=== PATIENT | female | born 1995 | race Caucasian/White ===

== ENCOUNTER 2023-12-28 03:24 | Emergency (ER) | payer SELFPAY ==
[2023-12-28 04:00] VITALS: BP 123/64; PULSE 91; RESP 16; TEMP 36.6; O2SAT 96; BMI 34.9
--- NOTE | 2023-12-28 04:03 | PC.NURSE ---
vibrator stuck in vagina
--- NOTE | 2023-12-28 04:17 | ED.SKABFB ---
HPI - Skin/Abscess/Foreign Bdy General Chief complaint: Skin/Abscess/Foreign Body Stated complaint: vibrator stuck in vagina Time Seen by Provider: 12/28/23 04:07 Source: patient Mode of arrival: Ambulatory Limitations: no limitations History of Present Illness HPI narrative: Patient is a healthy 28-year-old female who presents today with vibrator in vagina. She reports that this was consensual intercourse and vibrator got lost. He was tried for over an hour to get it out and unsuccessful. She is here alone. Related Data Allergies Allergy/AdvReac Type Severity Reaction Status Date / Time No Known Drug Allergies Allergy Verified 12/28/23 03:59 Patient History Social History Smoking Status: Never smoker Smoking Status: Never smoker alcohol intake frequency: a few times a week Substance Use Type: marijuana Exam Initial Vital Signs Initial Vital Signs: Vital Signs Temperature 97.8 F 12/28/23 04:00 Pulse Rate 91 H 12/28/23 04:00 Respiratory Rate 16 12/28/23 04:00 Blood Pressure 123/64 12/28/23 04:00 Pulse Oximetry 96 12/28/23 04:00 Oxygen Delivery Method Room Air 12/28/23 04:00 GENERAL: Well-appearing, well-nourished and in no acute distress. CARDIOVASCULAR: peripheral pulses in tact, cap refill <2 sec RESPIRATORY: No respiratory distress, speaks in full sentences without difficulty PELVIC: External genitalia is normal, foreign body identified and removed with Velma forceps, no vaginal bleeding EXTREMITIES: Normal range of motion, no clubbing or edema. Neurovascularly intact NEUROLOGICAL: Cranial nerves II through XII grossly intact. Normal gait and speech. SKIN: Warm, dry, no petechiae, no rashes or lesions. Course Vital Signs Vital signs: Vital Signs - 8 hr 12/28/23 04:00 Temperature 97.8 F Pulse Rate 91 H Respiratory Rate 16 Blood Pressure 123/64 Pulse Oximetry 96 Oxygen Delivery Method Room Air MDM - Skin/Abscess/Foreign Bdy MDM Narrative Medical decision making narrative: Patient is a healthy 28-year-old female who presents today with a foreign body in vagina. Was easily removed no trauma to the area. Patient instantly relieved. Discharge Plan Departure Patient Disposition: Home Clinical Impression: Acute foreign body of vagina Activity Restrictions/Additional Instructions: *You have been diagnosed with foreign body in your vagina *What to do: You maybe sore and experienced a little bit of bleeding it should resolve *Continue to take medications as directed *Follow up with your primary care provider in 2-3 days or call [phone] *Return to ER if you should have any new, worsening or concerning symptoms Stand Alone Forms: Patient Portal/API
== END 2023-12-28 04:22 | disposition home or self-care (01) ==
PROVIDERS: Emergency Provider Emergency Medicine
DX: T19.2XXA Foreign body in vulva and vagina, initial encounter (principal); W44.G9XA Other non-organic objects entering into or through a natural orifice, initial encounter
CPT/HCPCS: 99281; 99282

== ENCOUNTER 2024-01-22 17:02 | Emergency (ER) | payer OTHER, MEDICAID, SELFPAY ==
[2024-01-22 17:53] VITALS: BP 122/90; PULSE 85; RESP 16; TEMP 37.2; O2SAT 95; BMI 34.9
[2024-01-22 19:16] LABS: Add Manual Diff / Slide Review NO; Basophils Absolute Auto 0 /uL (0-100); Basophils Percent Auto 0.2 % (0-2); Eosinophils Absolute Auto 100 /uL (0-450); Eosinophils Percent Auto 1.9 % (2-4); Hemoglobin 14.1 g/dL (12.0-16.0); Lymphocytes Absolute Auto 1800 /uL (1100-4500); Lymphocytes Percent Auto 24.9 % (25-40); Mean Corpuscular HGB Conc 34.4 % (30-36); Mean Corpuscular Hemoglobin 29.9 PG (26-34); Mean Corpuscular Volume 87.1 fL (80-100); Monocytes Absolute Auto 500 /uL (0-900); Monocytes Percent Auto 7.4 % (3-14); Neutrophils Absolute Auto 4700 /uL (1500-7000); Neutrophils Percent Auto 65.6 % (50-75); Platelet Count 199 X10^3/uL (150-400); Red Blood Cell Count 4.71 X10^6/uL (4.0-5.2); Red Cell Distribution Width 13.4 % (11.6-14.8); White Blood Cell Count 7.2 X10^3/uL (4.5-11.0)
[2024-01-22 20:08] LABS: Alanine Aminotransferase 16 IU/L (<35); Albumin 3.9 g/dL (3.5-5.0); Albumin Globulin Ratio 1.1 (1.0-2.8); Alkaline Phosphatase 90 U/L (38-126); Aspartate Aminotransferase 26 IU/L (14-36); BUN Creatinine Ratio 10.9 (6-22); Bilirubin Total 0.6 mg/dL (0.2-1.3); Blood Urea Nitrogen 7 mg/dL (7-17); Calcium 8.9 mg/dL (8.4-10.2); Carbon Dioxide 24 mmol/L (22-32); Chloride 103 mmol/L (98-107); Estimated Glomerular Filt Rate > 60 mL/min (>60); Globulin 3.6 g/dL (1.7-4.1); Glucose 93 mg/dL (70-100); HEMOLYSIS 19 (0-50); Lipase 30 U/L (23-300); Sodium 134 mmol/L (137-145); Total Protein 7.5 g/dL (6.3-8.2)
[2024-01-22 20:22] LABS: Urine Volume 10mL (spun)
[2024-01-22 20:23] LABS: Bacteria Urine Many (>30); Culture Indicated Urine Specimen Cultured; Mucus Urine 1+ (Negative); RBC Urine 0-1/HPF (0-5/HPF); Squamous Epithelial Cell Urine 0-1 /HPF (0-5/HPF); WBC Urine 10-30/HPF (0-5/HPF)
[2024-01-22 20:46] VITALS: PULSE 91; O2SAT 91
[2024-01-22 20:47] VITALS: BP 128/87; PULSE 87; O2SAT 97
[2024-01-22 21:00] VITALS: BP 118/58; PULSE 86; O2SAT 95
--- NOTE | 2024-01-22 21:18 | ED_ITS ---
HPI - General Adult General Chief complaint: Abdominal Pain Stated complaint: gastric symptoms tampon stuck for 7 days Time Seen by Provider: 01/22/24 21:12 Source: patient Mode of arrival: Ambulatory History of Present Illness HPI narrative: Patient is a 28-year-old female who states that yesterday she removed a tampon that was mistakenly left hand for 7 days. She states that she also has symptoms that are consistent with a urinary tract infection to include urinary frequency and urgency. Has some very mild generalized abdominal tenderness. No vomiting. No fevers. No change in bowel habits. Not having any vaginal discharge. Related Data Previous Rx's Medication Instructions Recorded cephalexin 500 mg capsule 500 mg PO BID 7 days #14 caps 01/22/24 ondansetron 4 mg disintegrating 4 mg PO Q6H PRN nausea and 01/22/24 tablet vomiting #10 tabs Allergies Allergy/AdvReac Type Severity Reaction Status Date / Time No Known Drug Allergies Allergy Verified 12/28/23 03:59 Review of Systems Review of Systems Narrative: See HPI Patient History Social History Smoking Status: Never smoker Smoking Status: Never smoker alcohol intake frequency: a few times a week Substance Use Type: marijuana Exam Initial Vital Signs Initial Vital Signs: Vital Signs Temperature 99.0 F 01/22/24 17:53 Pulse Rate 85 01/22/24 17:53 Respiratory Rate 16 01/22/24 17:53 Blood Pressure 122/90 01/22/24 17:53 Pulse Oximetry 95 01/22/24 17:53 Oxygen Delivery Method Room Air 01/22/24 17:53 Const General: cooperative, comfortable and No ill appearing Resp Effort & Inspection: normal respiratory effort Cardio Rate: regular rate GI Inspection: normal to inspection Skin General: no rashes or lesions noted Course Orders Ordered: ED Orders 01/22/24 18:05 Complete Blood Count AUTO DIFF Stat Comprehensive Metabolic Panel Stat Lipase Stat 01/22/24 19:45 Urine Culture Stat Urine Microscopic Stat Discontinued Medications Cephalexin HCl (Cephalexin 250 Mg Capsule) 500 mg PO NOW ONE Stop: 01/22/24 21:20 Last Admin: 01/22/24 21:27 Dose: 500 mg Documented By: RUPERT Ondansetron HCl (Ondansetron 4 Mg/2 Ml Inj) 4 mg IV NOW PRN PRN Reason: Nausea And Vomiting Ondansetron HCl (Ondansetron 4 Mg Odt) 4 mg PO NOW PRN PRN Reason: Nausea And Vomiting Ondansetron HCl (Ondansetron 4 Mg Odt Prepack) 1 bottle MISC DIRECTED ONE Stop: 01/22/24 21:20 Last Admin: 01/22/24 21:27 Dose: 1 bottle Documented By: RUPERT Vital Signs Vital signs: Vital Signs - 8 hr 01/22/24 20:46 01/22/24 20:47 01/22/24 20:47 Pulse Rate 91 H 87 Blood Pressure 128/87 Pulse Oximetry 91 97 01/22/24 21:00 01/22/24 21:00 01/22/24 21:30 Pulse Rate 86 91 H Blood Pressure 118/58 L Pulse Oximetry 95 95 01/22/24 21:30 Pulse Rate Blood Pressure 111/78 Pulse Oximetry Medical Decision Making Lab Data 01/22/24 18:05 01/22/24 18:05 Labs: Lab Results 01/22/24 01/22/24 Range/Units 18:05 19:45 WBC 7.2 (4.5-11.0) X10^3/uL RBC 4.71 (4.0-5.2) X10^6/uL Hgb 14.1 (12.0-16.0) g/dL Hct 41.0 (36-46) % MCV 87.1 (80-100) fL MCH 29.9 (26-34) PG MCHC 34.4 (30-36) % RDW 13.4 (11.6-14.8) % Plt Count 199 (150-400) X10^3/uL Neut % (Auto) 65.6 (50-75) % Lymph % (Auto) 24.9 L (25-40) % [place] % (Auto) 7.4 (3-14) % Eos % (Auto) 1.9 L (2-4) % Baso % (Auto) 0.2 (0-2) % Neut # (Auto) 4700 (8528-1428) /uL Lymph # (Auto) 1800 (9527-2744) /uL [place] # (Auto) 500 (0-900) /uL Eos # (Auto) 100 (0-450) /uL Baso # (Auto) 0 (0-100) /uL Sodium 134 L (137-145) mmol/L Potassium 4.0 (3.4-5.1) mmol/L Chloride 103 (98-107) mmol/L Carbon Dioxide 24 (22-32) mmol/L BUN 7 (7-17) mg/dL Creatinine 0.64 (0.52-1.04) mg/dL Estimated GFR > 60 (>60) mL/min BUN/Creatinine Ratio 10.9 (6-22) Glucose 93 (70-100) mg/dL Calcium 8.9 (8.4-10.2) mg/dL Total Bilirubin 0.6 (0.2-1.3) mg/dL AST 26 (14-36) IU/L ALT 16 (<35) IU/L Alkaline Phosphatase 90 (38-126) U/L Total Protein 7.5 (6.3-8.2) g/dL Albumin 3.9 (3.5-5.0) g/dL Globulin 3.6 (1.7-4.1) g/dL Albumin/Globulin Ratio 1.1 (1.0-2.8) Lipase 30 (23-300) U/L Urine RBC 0-1/hpf (0-5/HPF) Urine WBC 10-30/hpf H (0-5/HPF) Ur Squamous Epith Cells 0-1 /hpf (0-5/HPF) Urine Bacteria Many (>30) H (None) Urine Mucus 1+ H (Negative) Ur Culture Indicated? Specimen cultured Vol Urine Centrifuged 10ml (spun) Point of Care Testing Test Results Negative Urine Dip Bedside Urine Glucose Negative Bedside Urine Bilirubin - Negative Bedside Urine Ketone - Negative Urine Specific [place] 1.025 Bedside Urine Occult Blood +++ Bedside Urine pH 5.5 Bedside Urine Protein - Negative Bedside Urine Urobilinogen - Negative Bedside Urine Nitrite - Negative Bedside Urine Leukocytes + 70 Esterase Point of care testing: Point of Care Testing Test Results Negative Urine Dip Bedside Urine Glucose Negative Bedside Urine Bilirubin - Negative Bedside Urine Ketone - Negative Urine Specific [place] 1.025 Bedside Urine Occult Blood +++ Bedside Urine pH 5.5 Bedside Urine Protein - Negative Bedside Urine Urobilinogen - Negative Bedside Urine Nitrite - Negative Bedside Urine Leukocytes + 70 Esterase MDM Narrative Medical decision making narrative: History and physical exam and labs are consistent with a urinary tract infection. Will treat with antibiotics. First dose given here in the emergency department a prescription was sent to the pharmacy of her choice. She was not have any physical exam or history labs that are consistent with toxic shock syndrome. Tolerating oral intake. She was given return precautions. She expressed understanding and agreement with plan. Discharge Plan Departure Patient Disposition: Home Clinical Impression: Urinary tract infection Instructions: DI for Urinary Tract Infection (UTI) Activity Restrictions/Additional Instructions: Take the antibiotics as directed. You can take Tylenol and/or ibuprofen for discomfort or fevers or body aches. Contact your primary doctor for a follow- up. Return to the emergency department for new or worsening symptoms. Prescriptions: New cephalexin 500 mg capsule 500 mg PO BID 7 Days Qty: 14 0RF ondansetron 4 mg tablet,disintegrating 4 mg PO Q6H PRN (Reason: nausea and vomiting) Qty: 10 0RF Referrals: Jazmine Adrian PA-C [Primary Care Provider] - Stand Alone Forms: Patient Portal/API/Survey
[2024-01-22] MEDS: cephALEXin 250 MG CAPSULE 500 MG PO (21:27)
[2024-01-22] MEDS: ONDANSETRON 4 MG ODT PREPACK 1 BOTTLE MISC (21:27)
[2024-01-22 21:30] VITALS: BP 111/78; PULSE 91; O2SAT 95
== END 2024-01-22 21:34 | disposition home or self-care (01) ==
PROVIDERS: Emergency Medicine; Emergency Provider Emergency Medicine; PCP Physician Assistant Medical
DX: N39.0 Urinary tract infection, site not specified (principal); J02.9 Acute pharyngitis, unspecified
CPT/HCPCS: 36415; 80053; 81003; 81015; 81025; 83690; 85025; 87077; 87086; 87186; 99283; 99284

== ENCOUNTER → 2024-08-06 11:49 | Outpatient (CLI) | payer OTHER, SELFPAY | PROVIDERS: PCP Nurse Practitioner Family; Visit Provider Chiropractor | DX: J02.9 Acute pharyngitis, unspecified (principal) | CPT/HCPCS: 87070 ==

== ENCOUNTER 2024-10-14 12:18 | Emergency (ER) | payer OTHER, SELFPAY ==
[2024-10-14 12:43] VITALS: BP 133/84; PULSE 112; RESP 20; TEMP 37; O2SAT 95; BMI 33.3
--- NOTE | 2024-10-14 13:12 | ED_ITS ---
HPI - Psych General Chief Complaint: Psychiatric Symptoms Stated Complaint: Mental health crisis/Does not trust self alone Time Seen by Provider: 10/14/24 12:55 Source: patient Mode of arrival: Ambulatory History of Present Illness HPI Narrative: Patient here for suicidal thoughts for the past couple of months. Worsening thoughts. She did call suicide hotline a few times this week. She has not done anything to hurt herself or overdose. No prior history of mental health admission to the hospitalist. She does have established psychiatrist then she has been off and on compliant with her medications. Does not have established counselor. She is voluntary and wishes help for her suicide ideations. Related Data Home Medications ?Medication ?Instructions ?Recorded ?Confirmed cholecalciferol (vitamin D3) 125 125 mcg PO .twice per week 08/17/24 08/17/24 mcg (5,000 unit) capsule mecobalamin (vitamin B12) 500 mcg mcg PO 08/17/2406/08 chewable tablet Previous Rx's ?Medication ?Instructions ?Recorded escitalopram oxalate 20 mg tablet 20 mg PO DAILY #90 t abs 02/05/24 levonorgestrel 0.15 mg-ethinyl See Rx Instructions PO .COMPLEX 02/05/24 estradiol 0.03 mg tablet #84 tabs atomoxetine 40 mg capsule 40 mg PO QAM #30 caps albuterol sulfate 90 mcg/actuation 2 puff inhalation Q 6H PRN 08/06/24 aerosol inhaler (Ventolin HFA) shortness of breath or wheezing #8.5 grams azithromycin 250 mg tablet See Rx Instructions PO .COM PLEX #6 08/06/24 tabs naltrexone 50 mg tablet 50 mg PO DAILY #30 tabs 09/14 07/09 Allergies Allergy/AdvReac Type Severity Reaction Status Date / Time No Known Drug Allergies Allergy Verified 10/14/24 12:45 Review of Systems Review of Systems Narrative: GENERAL: Negative chills, fatigue, malaise, fever, sweats. HEENT: Negative sinus pain, ear pain, sore throat RESPIRATORY: Negative dyspnea, cough CARDIOVASCULAR: Negative chest pain, palpitations GASTROINTESTINAL: Negative vomiting, nausea, abdominal pain : Negative dysuria, frequency, hematuria MUSCULOSKELETAL: Negative muscle or bony pain SKIN: Negative rash, skin lesions NEUROLOGIC: Negative weakness, numbness Psychiatric: Positive depression positive anxiety positive SI ROS Unobtainable: All systems reviewed & are unremarkable except as noted in HPI and below Patient History Medical History (Updated 10/14/24 @ 15:19 by Reece Torres MD) ADHD (attention deficit hyperactivity disorder), inattentive type NOE (generalized anxiety disorder) MDD (major depressive disorder), recurrent episode, moderate Alcohol use disorder, moderate, dependence Asthma (~2020) Bulimia (~2009) Anorexia nervosa (~2009) Herpes (~2013) control counseling PTSD (post-traumatic stress disorder) (~2017) Anxiety and depression (~2017) alcohol intake frequency: a few times a week Alcohol type: hard liquor Exam Narrative Exam Narrative: GENERAL: in no distress, not toxic not dyspneic HEAD: Normocephalic. EYES: Pupils equal round ENT: Mucous membranes moist. NECK: Trachea midline. CARDIOVASCULAR: Regular rate and rhythm RESPIRATORY: Clear to auscultation. Breath sounds equal bilaterally. No wheezes, rales, or rhonchi. GASTROINTESTINAL: Abdomen soft, non-tender EXTREMITIES: No gross deformities. BACK: No flank tenderness. NEURO: AOx4. Clear speech SKIN: Warm and dry PSYCH: Not anxious, is cooperative, positive SI, flat affect, no pressured speech no rapid speech. Initial Vital Signs Initial Vital Signs: Vital Signs Temperature 98.6 F 10/14/24 12:43 Pulse Rate 112 H 10/14/24 12:43 Respiratory Rate 20 10/14/24 12:43 Blood Pressure 133/84 10/14/24 12:43 Pulse Oximetry 95 10/14/24 12:43 Oxygen Delivery Method Room Air 10/14/24 12:43 Course Orders Ordered: ED Orders 10/14/24 12:53 Consult to FLIGHT ENGINEER - Yard Operator [place]ine [place] [facility] Stat 10/14/24 13:05 Acetaminophen Stat Complete Blood Count AUTO DIFF Stat Comprehensive Metabolic Panel Stat Ethanol (ETOH) Stat Salicylate Stat TSH w/ Reflex to FT4 Stat 10/14/24 13:50 Urine Drug Screen, Rapid Stat Vital Signs Vital signs: Vital Signs - 8 hr 10/14/24 12:43 10/14/24 16:14 Temperature 98.6 F 98.6 F Pulse Rate 112 H 95 H Respiratory Rate 20 18 Blood Pressure 133/84 117/84 Pulse Oximetry 95 95 Oxygen Delivery Method Room Air Room Air MDM - Psych Lab Data 10/14/24 13:05 10/14/24 13:05 Labs: Lab Results 10/14/24 10/14/24 Range/Units 13:05 13:50 WBC 9.0 (4.5-11.0) X10^3/uL RBC 5.02 (4.0-5.2) X10^6/uL Hgb 15.3 (12.0-16.0) g/dL Hct 44.3 (36-46) % MCV 88.1 (80-100) fL MCH 30.5 (26-34) PG MCHC 34.6 (30-36) % RDW 14.0 (11.6-14.8) % Plt Count 266 (150-400) X10^3/uL Neut % (Auto) 61.5 (50-75) % Lymph % (Auto) 31.7 (25-40) % [place] % (Auto) 5.2 (3-14) % Eos % (Auto) 1.0 L (2-4) % Baso % (Auto) 0.6 (0-2) % Neut # (Auto) 5500 (4802-0178) /uL Lymph # (Auto) 2900 (3613-8086) /uL [place] # (Auto) 500 (0-900) /uL Eos # (Auto) 100 (0-450) /uL Baso # (Auto) 100 (0-100) /uL Sodium 141 (137-145) mmol/L Potassium 4.1 (3.4-5.1) mmol/L Chloride 106 (98-107) mmol/L Carbon Dioxide 19 L (22-32) mmol/L BUN 8 (7-17) mg/dL Creatinine 0.75 (0.52-1.04) mg/dL Estimated GFR > 60 (>60) mL/min BUN/Creatinine Ratio 10.7 (6-22) Glucose 163 H (70-99) mg/dL Calcium 8.7 (8.4-10.2) mg/dL Total Bilirubin 0.5 (0.2-1.3) mg/dL AST 24 (14-36) IU/L ALT 16 (<35) IU/L Alkaline Phosphatase 87 (38-126) U/L Total Protein 8.3 H (6.3-8.2) g/dL Albumin 4.7 (3.5-5.0) g/dL Globulin 3.6 (1.7-4.1) g/dL Albumin/Globulin Ratio 1.3 (1.0-2.8) TSH 1.35 (0.47-4.68) uIU/mL Salicylates < 1.0 (<20) mg/dL U Opiates 300ng/mL cut Negative (Negative) Ur Oxycodone Screen Negative (Negative) Urine Methadone Screen Negative (Negative) Acetaminophen < 10 (10-30) ug/mL Ur Barbiturates Screen Negative (Negative) U Tricyclic Antidepress Negative (Negative) Ur Phencyclidine Scrn Negative (Negative) Ur Amphetamines Screen Negative (Negative) U Methamphetamines Scrn Negative (Negative) Ur MDMA Scrn (Ecstasy) Negative (Negative) U Benzodiazepines Scrn Negative (Negative) Urine Cocaine Screen Negative (Negative) U Marijuana (THC) Screen Positive H (Negative) Urine pH Normal (Normal) Urine Specific [place] Normal (Normal) Ethyl Alcohol 154 H (<10) mg/dL Ur Creatinine Normal (Normal) Point of Care Testing Test Results Negative Urine Dip Bedside Urine Glucose Negative Bedside Urine Bilirubin - Negative Bedside Urine Ketone - Negative Urine Specific [place] 1.015 Bedside Urine Occult Blood +/- Bedside Urine pH 6.0 Bedside Urine Protein - Negative Bedside Urine Urobilinogen - Negative Bedside Urine Nitrite - Negative Bedside Urine Leukocytes ++ 125 Esterase MDM Narrative Medical decision making narrative: Patient here for suicidal thoughts for the past couple of months. Worsening thoughts. She did call suicide hotline a few times this week. She has not done anything to hurt herself or overdose. No prior history of mental health admission to the hospitalist. She does have established psychiatrist then she has been off and on compliant with her medications. Does not have established counselor. She is voluntary and wishes help for her suicide ideations. MDM After history and exam, CBC CMP test urinalysis TSH alcohol Tylenol aspirin level social work consult Differential considered: Includes but not limited to depression suicidal ideation anxiety Medical records reviewed: No recent visit for this complaint Lab Test results independently reviewed as above. Pertinent findings: WBC 9.0 hemoglobin 15.3 hematocrit 44 sodium 141 potassium 4.1 BUN 8 creatinine 0.75, drug screen positive thc, aspirin accident and Tylenol negative alcohol 154 TSH 1.35 negative , positive leukocyte esterase Consultations: 3:19 p.m.. metal worker, Eliana, has been able to get [facility] to accept patient. Nurse practitioner david Seth will accept patient Re-evaluations: 3:30 p.m.. Updated patient treatment plan and she agrees. Discussion: Appropriate for transfer higher level of care needs behavioral health services. Patient's volunteer. Patient has been cooperative. Diagnosis: Suicide ideation Discharge Plan Departure Patient Disposition: [facility] Clinical Impression: Suicidal ideation Prescriptions: No Action azithromycin 250 mg tablet See Rx Instructions PO .COMPLEX Qty: 6 0RF Rx Instructions: For 250 mg dose pack: take 500 mg today (day 1), then 250 mg for 4 days (days 2-5) PO albuterol sulfate [Ventolin HFA] 90 mcg/actuation HFA aerosol inhaler 2 puff inhalation Q6H PRN (Reason: shortness of breath or wheezing) Qty: 8.5 0RF mecobalamin (vitamin B12) 500 mcg tablet,chewable PO cholecalciferol (vitamin D3) 125 mcg (5,000 unit) capsule 125 mcg PO .twice per week naltrexone 50 mg tablet 50 mg PO DAILY Qty: 30 2RF atomoxetine 40 mg capsule 40 mg PO QAM Qty: 30 2RF Rx Instructions: take with breakfast escitalopram oxalate 20 mg tablet 20 mg PO DAILY Qty: 90 3RF levonorgestrel-ethinyl estrad 0.15-0.03 mg tablet See Rx Instructions PO .COMPLEX Qty: 84 3RF Rx Instructions: take 1 tablet daily following the order on blister card(s) PO Referrals: Prisca Blank, SUGAR LABORATORY ASSISTANT-BC [Primary Care Provider, Family Practice]
[2024-10-14 13:19] LABS: Add Manual Diff / Slide Review NO; Hematocrit 44.3 % (36-46); Hemoglobin 15.3 g/dL (12.0-16.0); Lymphocytes Absolute Auto 2900 /uL (1100-4500); Mean Corpuscular HGB Conc 34.6 % (30-36); Mean Corpuscular Hemoglobin 30.5 PG (26-34); Mean Corpuscular Volume 88.1 fL (80-100); Platelet Count 266 X10^3/uL (150-400)
--- NOTE | 2024-10-14 13:22 | PC.NURSE ---
pt handed me a plastic cup lid that was ripped in half. pt stated Please take this. the garbage was removed from pt and thrown away. The pt agreed to searching her hair for any hair clips. None were found. Pt also agreed for me to remove bracelet from her wrist and put it with her belongings.
[2024-10-14 13:34] LABS: Acetaminophen < 10 ug/mL (10-30); Alanine Aminotransferase 16 IU/L (<35); Albumin 4.7 g/dL (3.5-5.0); Albumin Globulin Ratio 1.3 (1.0-2.8); Alkaline Phosphatase 87 U/L (38-126); Blood Urea Nitrogen 8 mg/dL (7-17); Calcium 8.7 mg/dL (8.4-10.2); Carbon Dioxide 19 mmol/L (22-32); Chloride 106 mmol/L (98-107); Estimated Glomerular Filt Rate > 60 mL/min (>60); Ethanol (ETOH) 154 mg/dL (<10); Globulin 3.6 g/dL (1.7-4.1); Glucose 163 mg/dL (70-99); HEMOLYSIS < 15 (0-50); Potassium 4.1 mmol/L (3.4-5.1); Salicylate < 1.0 mg/dL (<20); Sodium 141 mmol/L (137-145); Total Protein 8.3 g/dL (6.3-8.2)
[2024-10-14 14:04] LABS: TSH w/ Reflex to FT4 1.35 uIU/mL (0.47-4.68)
[2024-10-14 14:17] LABS: Ur Creatinine Normal (Normal); Ur Specific Gravity Normal (Normal); Urine MDMA Negative (Negative); Urine Methamphetamines Negative (Negative); Urine THC Positive (Negative); Urine Tricyclic Antidepressant Negative (Negative); Urine pH Normal (Normal)
--- NOTE | 2024-10-14 14:31 | CM.SWNOTE ---
ED ASP NET SOFTWARE DEVELOPER Assessment Note: ASP NET SOFTWARE DEVELOPER - Adjunct Professor Assessment ASP NET SOFTWARE DEVELOPER/Adjunct Professor Assessment Time Spent with Patient Start date 10/14/24 Visit Start Time 13:45 End date 10/14/24 Visit End Time 14:00 Total time Care 15 minutes Management spent on patient visit-in minutes Mental Health Screening Include Onset, Duration, Intensity Presenting Problem Patient presents to the ED due to suicidal ideation with plan and intent. Patient states she has been experiencing SI for the past month and has been trying to utilize the Crisis Hotline for support. Today, she realized she had intention to execute the plan of slitting her wrists with her knives in her kitchen. Precipitating Event( Patient states she has been struggling with symptoms s) from ADHD and PTSD, I have no motivation, no energy. I just feel so helpless. Patient denies any interpersonal conflict or events to attribute to these emotions. Patient Strengths Patient is communicative and seeking help. Patient finds positive support from her mother, Fariba. Current Behavioral No current therapist. Health Provider(s) Psychiatrist - Dr. Claude Leyva (ph#[phone]) Include Facility, . Provider, Ph. # Psych. Hx Mental ADHD, PTSD - Current medications: [employer] and [employer] escitalopram oxalate 20 mg tablet Dependency 20?mg?PO?DAILY naltrexone 50 mg tablet 50?mg?PO?DAILY atomoxetine 40 mg capsule 40?mg?PO?QAM Family Hx of None reported. Behavioral Abuse Psychiatric None reported. Hospitalizations ( date(s)/location) Psychosocial Patient is a 29yo female, resident of [place] at [facility] with her cat, . 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 Substance Abuse Screening Include Onset, Duration, Intensity Presenting Problem Patient reports that for the past 6 months, she has been drinking 4-5 nights a week of approximately 8 shots of whiskey and 2-3 beers. Patient reports some THC use. Pt's current BAL is 154. Rehab Facilities? (( None reported. Date(s), Location(s) ) History of None reported. Withdrawal? Seizures ? Legal Concerns Legal Matters - None reported. Outstanding Issues Mental Status Orientation (Person/ AOx3 Place/Time) Stated Mood helpless Affect (Congruent Labile, tearful, congruent with mood with Mood?) Thought Content - None reported. None identified during assessment. Specify/Describe Obsessions, Delusions, Hallucinations Thought Processes ( Logical, goal directed Logical-Coherent- Goal Directed- Detailed-Tangential- Circumstantial- Logical-Disorganized -Thought Blocking) Speech (Normal-Slow- Normal Vckvcvp-Orwob-Nzhv- Loud-Pressured) Motor (Normal- Normal [id number]-Xcqwp ) Insight (Good-Fair- Good Poor/Limited) Judgement (Good-Fair Good -Poor/Limited) Impulse Control ( Impaired Adequate-Impaired) Memory (Immediate- Intact Recent-Remote, Impaired-Intact) Concentration ( Intact Intact-Impaired) Attention (Intact- Intact Impaired) Behavior ( Appropriate Appropriate- Inappropriate) Additional Comment Patient is calm, cooperative and communicative during assessment. Risk Assessment Suicidal Ideation ( Yes Plan) Homicidal Ideation ( Yes Plan) Comment [place]-SUICIDE SEVERITY RATING SCALE 1) Have you wished you were or wished you could go to sleep and not wake up? YES 2) Have you actually had any thoughts of killing yourself? YES 3) Have you been thinking about how you might do this? YES 4) Have you had these thoughts and had some intention of acting on them? YES 5) Have you started to work out or worked out the details of how to kill yourself? Do you intend to carry out this plan? YES 6) Have you ever done anything, started to do anything, or prepared to do anything to end your life? YES If YES, ask: Was this within the past three months? NO (high school) Intervention Intervention Reviewed chart and discussed with ED Provider pt's medical status and discharge needs. ED ASP NET SOFTWARE DEVELOPER meets with patient. Patient endorses feeling unsafe with increased SI with plan, she lives alone and is seeking inpatient treatment. ED ASP NET SOFTWARE DEVELOPER and patient discuss goals of care. Patient explains they are agreeable to receive inpatient behavioral health hospitalization at this time. At this time, it is the opinion of this ASP NET SOFTWARE DEVELOPER that patient would benefit from inpatient psychiatric hospitalization for SI. ASP NET SOFTWARE DEVELOPER informs ED provider, Dr. Torres, who indicates agreement. ASP NET SOFTWARE DEVELOPER informs NIA Sage. Plan RA Plan Once patient is medically clear, ED staff will attempt to find inpatient placement for patient. Eliana Mckinney CEMENT TRUCK DRIVER
--- NOTE | 2024-10-14 15:57 | CM.SWNOTE ---
ED STRETCHER LEVELER OPERATOR Note: ED STRETCHER LEVELER OPERATOR initiated bed search for inpatient treatment. STRETCHER LEVELER OPERATOR calls [facility], it was reported that there are beds available. STRETCHER LEVELER OPERATOR sent packet for review and completed initial referral assessment via phone. STRETCHER LEVELER OPERATOR received call from Rojelio Arcos reports patient is accepted for inpatient treatment, they are requesting patient to arrive at their facility after 1540. Provider: BERTA Kevin RN-RN Report#: [phone] STRETCHER LEVELER OPERATOR called [facility] and coordinated BLS transport for patient from ED at 1600, to arrive at facility at 1710. STRETCHER LEVELER OPERATOR relayed this info to Intake Tray at [facility]. Pt belongings bag (clothes and keys) provided to [facility] transport team. Plan: Transfer to [facility] for inpatient psych treatment via [facility] at 1600. JANI Morales
--- NOTE | 2024-10-14 16:13 | PC.NURSE ---
[facility] HERE TO TRANSPORT.
[2024-10-14 16:14] VITALS: BP 117/84; PULSE 95; RESP 18; TEMP 37; O2SAT 95
== END 2024-10-14 16:25 | disposition short-term general hospital (02) ==
PROVIDERS: Emergency Provider Emergency Medicine; Family Provider Nurse Practitioner Family; PCP Nurse Practitioner Family
DX: R45.851 Suicidal ideations (principal)
CPT/HCPCS: 36415; 80053; 80305; 80320; 80329; 81003; 81025; 84443; 85025; 99284; G0480

== ENCOUNTER 2024-10-22 14:03 | Emergency (ER) | payer OTHER, SELFPAY ==
[2024-10-22 14:35] VITALS: BP 131/85; PULSE 107; RESP 16; TEMP 36.6; O2SAT 96; BMI 33.2
[2024-10-22 15:22] LABS: Add Manual Diff / Slide Review NO; Hematocrit 42.2 % (36-46); Hemoglobin 14.9 g/dL (12.0-16.0); Lymphocytes Absolute Auto 2400 /uL (1100-4500); Mean Corpuscular HGB Conc 35.2 % (30-36); Mean Corpuscular Hemoglobin 30.5 PG (26-34); Mean Corpuscular Volume 86.6 fL (80-100); Platelet Count 224 X10^3/uL (150-400)
[2024-10-22 15:33] LABS: Alanine Aminotransferase 19 IU/L (<35); Albumin 4.2 g/dL (3.5-5.0); Albumin Globulin Ratio 1.2 (1.0-2.8); Alkaline Phosphatase 89 U/L (38-126); Blood Urea Nitrogen 11 mg/dL (7-17); Calcium 8.9 mg/dL (8.4-10.2); Carbon Dioxide 25 mmol/L (22-32); Chloride 103 mmol/L (98-107); Estimated Glomerular Filt Rate > 60 mL/min (>60); Globulin 3.4 g/dL (1.7-4.1); Glucose 116 mg/dL (70-99); HEMOLYSIS < 15 (0-50); Potassium 3.6 mmol/L (3.4-5.1); Sodium 141 mmol/L (137-145); Total Protein 7.6 g/dL (6.3-8.2)
[2024-10-22 15:34] LABS: COVID19 -Nasal RAPID Negative (Negative)
[2024-10-22 15:35] LABS: UR Morphine/Opiate cutoff 300 Negative (Negative); Ur Specific Gravity Normal (Normal); Urine Tetrahydrocannabinol Positive (Negative)
[2024-10-22 15:36] LABS: Urine MDMA Negative (Negative); Urine Methamphetamines Negative (Negative); Urine Tricyclic Antidepressant Negative (Negative)
[2024-10-22 16:00] LABS: Acetaminophen < 10 ug/mL (10-30); Salicylate < 1.0 mg/dL (<20)
[2024-10-22 16:11] LABS: Ethanol (ETOH) 121 mg/dL (<10)
[2024-10-22 16:13] LABS: TSH w/ Reflex to FT4 1.43 uIU/mL (0.47-4.68)
--- NOTE | 2024-10-22 16:38 | CM.SWNOTE ---
ED CLOTH FOLDER MACHINE Assessment Note CLOTH FOLDER MACHINE - Metabolic Specialist Assessment CLOTH FOLDER MACHINE/Metabolic Specialist Assessment Time Spent with Patient Start date 10/22/24 Visit Start Time 15:40 End date 10/22/24 Visit End Time 15:50 Total time Care 10 minutes Management spent on patient visit-in minutes Mental Health Screening Include Onset, Duration, Intensity Presenting Problem Patient presents to ED due to concern for worsening SI, patient cut self today with intent to kill self, patient presents with current SI with plans to use a knife. Patient endorses she feels unsafe to be alone at home. Patient endorses that she started drinking last night and drank before she came to the ED. Precipitating Event( Patient had similar presentation to the ED on 10/14/24 s) resulting in transfer to [facility] at their U. Patient states she was discharged late Friday and has been struggling since she has been home. Patient states she started drinking yesterday night and drank 12 shots of Whiskey and today she drank 6 shots of Whiskey in the parking lot before entering the ED. Patient endorses that she has been stressed about uncertainty of her living situation and states that she is living in her friend's and he said she would need to buy it to continue living in it. Patient plans to live with friends in [place] next month. Patient Strengths Patient has friends as supports, patient is seeking help, patient has outpatient Psychiatrist. Current Behavioral Patient sees Psychiatrist Dr. Leyva at [facility] Provider(s) Psychiatry (Ph. # [phone]). Patient gives consent Include Facility, for CLOTH FOLDER MACHINE to contact provider regarding patient's ED Provider, Ph. # presentation. CLOTH FOLDER MACHINE calls and leaves . Patient has rx for escitalopram oxalate 20 mg, naltrexone 50 mg, and atomoxetine 40 mg. Psych. Hx Mental Patient has hx of ADHD, PTSD, SI, and suicide attempt. Health and Chemical Patient endorses daily marijuana use and states that Dependency she has been drinking 4-5 nights a week over the last 6 months. Patient states she started drinking again yesterday after being inpatient at [facility] for several days . Patient endorses concern for her drinking. Patient states she was offered outpatient NITA resources but had difficulty following up with these resources on her own. Family Hx of None reported Behavioral Abuse Psychiatric [facility]- 10/14/24-10/19/24 - voluntary Hospitalizations ( date(s)/location) Psychosocial Patient is 29 y/o female who resides at the [facility]. Patient has friends and mother as Support Systems supports. 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 Legal Concerns Legal Matters - None reported Outstanding Issues Mental Status Orientation (Person/ A/Ox4 Place/Time) Stated Mood I don't trust myself alone Affect (Congruent flat at times, euthymic, somewhat congruent with mood. with Mood?) Thought Content - Patient denies visual and auditory hallucinations. Specify/Describe Obsessions, Delusions, Hallucinations Thought Processes ( goal oriented, coherent Logical-Coherent- Goal Directed- Detailed-Tangential- Circumstantial- Logical-Disorganized -Thought Blocking) Speech (Normal-Slow- soft/normal Ofzwbvv-Tallr-Khoe- Loud-Pressured) Motor (Normal- normal Txpkjslrw-Gqjz-Pvzyk ) Insight (Good-Fair- good/fair Poor/Limited) Judgement (Good-Fair good/fair -Poor/Limited) Impulse Control ( adequate Adequate-Impaired) Memory (Immediate- intact, not formally assessed Recent-Remote, Impaired-Intact) Concentration ( intact Intact-Impaired) Attention (Intact- intact Impaired) Behavior ( appropriate Appropriate- Inappropriate) Additional Comment Patient presents as calm, cooperative and communicative . Risk Assessment Suicidal Ideation ( Yes Plan) Homicidal Ideation ( No Plan) Comment Patient presents with current SI, increasing SI since yesterday. Patient cut self with knife today with intent to kill self. Patient presents with superficial lacerations on arm. Patient endorses she is concerned about being alone and feels unsafe to be by her self. Patient endorses her drinking is impacting her mental health and when she is depressed she drinks. Patient had similar presentation on 10/14/24 and presented with SI with thoughts of plans of cutting self. Patient continues to have thoughts of plans of cutting self with knife. Patient denies HI. Intervention Intervention CLOTH FOLDER MACHINE meets with patient. Patient endorses concern for current and increasing SI with thoughts of plans and intent, recent attempt today , concern for her ETOH use as patient relapsed last night. Patient presents to the ED seeking voluntary treatment. CLOTH FOLDER MACHINE discusses voluntary dual dx treatment to address NITA and MH and patient indicates agreement and understanding. It is the opinion of this CLOTH FOLDER MACHINE that patient is appropriate for and will benefit from voluntary BH/NITA dual dx inpatient upon medical clearance for safety, crisis stabilization and medication management. CLOTH FOLDER MACHINE reviews this with ED provider Dr. Oropeza who indicates agreement and understanding, pending ED provider evaluation at this time. Plan RA Plan CLOTH FOLDER MACHINE and ED to seek dual dx BH/NITA inpatient placement for patient upon medical clearance. Mariana Clark, ENFORCEMENT OFFICER
--- NOTE | 2024-10-22 16:57 | ED.PSYCH ---
HPI - Psych <Jamie Oropeza, DO - Last Filed: 10/22/24 17:19> General Chief Complaint: Psychiatric Symptoms Stated Complaint: Mental Health issues Time Seen by Provider: 10/22/24 15:12 Source: patient Mode of arrival: Family Vehicle History of Present Illness HPI Narrative: 29-year-old female history of anxiety depression alcohol use ADHD depression recently admitted and discharged from a mental health facility this past Friday presents today with suicidal thoughts and plan to harm herself cutting her left wrist with a knife. She feels extremely stressed at this time and feels no self worth and no options for herself at this time. She denies hearing voices, seeing things, or wanting to hurt anybody else. She has not been compliant in taking her meds and states naltrexone does not stop her from drinking. Other than what is stated 14 point review of system is negative. Related Data Home Medications ?Medication ?Instructions ?Recorded ?Confirmed cholecalciferol (vitamin D3) 125 125 mcg PO .twice per week 08/17/24 08/17/24 mcg (5,000 unit) capsule mecobalamin (vitamin B12) 500 mcg mcg PO 08/17/24 08/17/24 chewable tablet Previous Rx's ?Medication ?Instructions ?Recorded escitalopram oxalate 20 mg tablet 20 mg PO DAILY #90 tabs 02/05/24 levonorgestrel 0.15 mg-ethinyl See Rx Instructions PO .COMPLEX 02/05/24 estradiol 0.03 mg tablet #84 tabs atomoxetine 40 mg capsule 40 mg PO QAM #30 caps 07/20/24 albuterol sulfate 90 mcg/actuation 2 puff inhalation Q6H PRN 08/06/24 aerosol inhaler (Ventolin HFA) shortness of breath or wheezing #8.5 grams azithromycin 250 mg tablet See Rx Instructions PO .COMPLEX #6 08/06/24 tabs naltrexone 50 mg tablet 50 mg PO DAILY #30 tabs 09/27/24 Allergies Allergy/AdvReac Type Severity Reaction Status Date / Time No Known Drug Allergies Allergy Verified 10/22/24 14:36 Review of Systems <Jamie Oropeza DO - Last Filed: 10/22/24 17:19> Review of Systems ROS Unobtainable: All systems reviewed & are unremarkable except as noted in HPI and below Patient History <Jamie Oropeza DO - Last Filed: 10/22/24 17:19> Medical History (Updated 10/22/24 @ 17:19 by Jamie Oropeza DO) ADHD (attention deficit hyperactivity disorder), inattentive type NOE (generalized anxiety disorder) MDD (major depressive disorder), recurrent episode, moderate Alcohol use disorder, moderate, dependence Asthma (~2020) Bulimia (~2009) Anorexia nervosa (~2009) Herpes (~2013) control counseling PTSD (post-traumatic stress disorder) (~2017) Anxiety and depression (~2017) Social History Smoking Status: Former smoker Smoking Status: Former smoker tobacco type: cigarettes alcohol intake frequency: a few times a week Alcohol type: hard liquor Exam <Jamie Oropeza DO - Last Filed: 10/22/24 17:19> Narrative Exam Narrative: GENERAL: [29)year old patient appears stated age. Well-developed patient, in mild distress. HEAD: Atraumatic. Normocephalic. EYES: Pupils equal round and reactive. Extraocular motions intact. No scleral icterus. No injection or drainage. ENT: Nose without bleeding, purulent drainage. Throat without erythema, tonsillar hypertrophy or exudate. Airway patent. NECK: Trachea midline. Non tender CARDIOVASCULAR: Regular rate and rhythm without murmurs, gallops, or rubs. RESPIRATORY: Clear to auscultation. Breath sounds equal bilaterally. No wheezes, rales, or rhonchi. GASTROINTESTINAL: Abdomen soft, non-tender, nondistended. EXTREMITIES: No edema or joint tenderness. BACK: Nontender without deformity or crepitance. No flank tenderness. NEURO: AOx3. SKIN: No rash or erythema of visible areas. Superficial cuts palmar palmar surface left wrist. Motor sensory intact radial pulse cap refill less than 2 seconds with full range of motion of the left hand and wrist. Initial Vital Signs Initial Vital Signs: Vital Signs Temperature 98 F 10/22/24 14:35 Pulse Rate 107 H 10/22/24 14:35 Respiratory Rate 16 10/22/24 14:35 Blood Pressure 131/85 10/22/24 14:35 Pulse Oximetry 96 10/22/24 14:35 Oxygen Delivery Method Room Air 10/22/24 14:35 Psych Appearance: grossly normal Mood: anxious mood Affect: sad Attitude: cooperative Thought Process: illogical Thought Content: suicidality Judgment: poor <Bethel Hernandez MD - Last Filed: 10/23/24 01:46> Initial Vital Signs Initial Vital Signs: Vital Signs Temperature 98 F 10/22/24 14:35 Pulse Rate 107 H 10/22/24 14:35 Respiratory Rate 16 10/22/24 14:35 Blood Pressure 131/85 10/22/24 14:35 Pulse Oximetry 96 10/22/24 14:35 Oxygen Delivery Method Room Air 10/22/24 14:35 Course <Jamie Oropeza DO - Last Filed: 10/22/24 17:19> 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 [facility] [place] [facility] Routine 10/22/24 15:08 COVID19 -Nasal RAPID Stat Vital Signs Vital signs: Vital Signs - 8 hr 10/22/24 19:27 Pulse Rate 88 Respiratory Rate 20 Blood Pressure 125/80 Pulse Oximetry 96 Oxygen Delivery Method Room Air <Bethel Hernandez MD - Last Filed: 10/23/24 01:46> Course Course Narrative: 18:00 Patient care transferred to ca at the change of shift by Dr. Mei with placement pending. This is a 21-year-old female patient with a history of ADHD, depression, anxiety, alcohol use disorder and previous admissions for suicidal ideation and gestures who presents with suicide ideation and self-harm with superficial knife cuts. She has been evaluated and detained for suicidal ideation. Awaiting placement. 19:15 [facility]IS found placement for this patient at [facility] and we will arrange transport. 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 10/22/24 15:08 COVID19 -Nasal RAPID Stat Vital Signs Vital signs: Vital Signs - 8 hr 10/22/24 19:27 Pulse Rate 88 Respiratory Rate 20 Blood Pressure 125/80 Pulse Oximetry 96 Oxygen Delivery Method Room Air MDM - Psych <Jamie Oropeza, DO - Last Filed: 10/22/24 17:19> Lab Data 10/22/24 15:00 10/22/24 15:00 Labs: Lab Results 10/22/24 10/22/24 10/22/24 Range/Units 14:57 15:00 15:08 WBC 7.7 (4.5-11.0) X10^3/uL RBC 4.88 (4.0-5.2) X10^6/uL Hgb 14.9 (12.0-16.0) g/dL Hct 42.2 (36-46) % MCV 86.6 (80-100) fL MCH 30.5 (26-34) PG MCHC 35.2 (30-36) % RDW 13.6 (11.6-14.8) % Plt Count 224 (150-400) X10^3/uL Neut % (Auto) 59.7 (50-75) % Lymph % (Auto) 31.4 (25-40) % [place] % (Auto) 6.3 (3-14) % Eos % (Auto) 2.2 (2-4) % Baso % (Auto) 0.4 (0-2) % Neut # (Auto) 4600 (1043-3506) /uL Lymph # (Auto) 2400 (0307-7271) /uL [place] # (Auto) 500 (0-900) /uL Eos # (Auto) 200 (0-450) /uL Baso # (Auto) 0 (0-100) /uL Sodium 141 (137-145) mmol/L Potassium 3.6 (3.4-5.1) mmol/L Chloride 103 (98-107) mmol/L Carbon Dioxide 25 (22-32) mmol/L BUN 11 (7-17) mg/dL Creatinine 0.82 (0.52-1.04) mg/dL Estimated GFR > 60 (>60) mL/min BUN/Creatinine Ratio 13.4 (6-22) Glucose 116 H (70-99) mg/dL Calcium 8.9 (8.4-10.2) mg/dL Total Bilirubin 0.3 (0.2-1.3) mg/dL AST 24 (14-36) IU/L ALT 19 (<35) IU/L Alkaline Phosphatase 89 (38-126) U/L Total Protein 7.6 (6.3-8.2) g/dL Albumin 4.2 (3.5-5.0) g/dL Globulin 3.4 (1.7-4.1) g/dL Albumin/Globulin Ratio 1.2 (1.0-2.8) TSH 1.43 (0.47-4.68) uIU/mL Salicylates < 1.0 (<20) mg/dL U Opiates 300ng/mL cut Negative (Negative) Ur Oxycodone Screen Negative (Negative) Urine Methadone Screen Negative (Negative) Acetaminophen < 10 (10-30) ug/mL Ur Barbiturates Screen Negative (Negative) U Tricyclic Antidepress Negative (Negative) Ur Phencyclidine Scrn Negative (Negative) Ur Amphetamines Screen Negative (Negative) U Methamphetamines Scrn Negative (Negative) Ur MDMA Scrn (Ecstasy) Negative (Negative) U Benzodiazepines Scrn Positive H (Negative) Urine Cocaine Screen Negative (Negative) U Marijuana (THC) Screen Positive H (Negative) Urine pH Normal (Normal) Urine Specific [place] Normal (Normal) Ethyl Alcohol 121 H (<10) mg/dL Ur Creatinine Normal (Normal) SARS-CoV-2 (PCR) Negative (Negative) Point of Care Testing Test Results Negative Urine Dip Bedside Urine Glucose Negative Bedside Urine Bilirubin - Negative Bedside Urine Ketone - Negative Urine Specific [place] 1.015 Bedside Urine Occult Blood - Negative Bedside Urine pH 6.0 Bedside Urine Protein - Negative Bedside Urine Urobilinogen - Negative Bedside Urine Nitrite - Negative Bedside Urine Leukocytes - Negative Esterase MDM Narrative Medical decision making narrative: Vital signs, nurse triage note, medication list, previous ER visits, and all imaging studies reviewed. Glucose 116, UDS positive for benzos marijuana. Alcohol level 121. Differential diagnosis depression, anxiety, suicidal attempt, suicidal ideation, polysubstance abuse. Patient agreeable volunteer be admitted to mental health facility at this time. Medically cleared for transfer. <Bethel Hernandez MD - Last Filed: 10/23/24 01:46> Lab Data Labs: Lab Results 10/22/24 10/22/24 10/22/24 Range/Units 14:57 15:00 15:08 WBC 7.7 (4.5-11.0) X10^3/uL RBC 4.88 (4.0-5.2) X10^6/uL Hgb 14.9 (12.0-16.0) g/dL Hct 42.2 (36-46) % MCV 86.6 (80-100) fL MCH 30.5 (26-34) PG MCHC 35.2 (30-36) % RDW 13.6 (11.6-14.8) % Plt Count 224 (150-400) X10^3/uL Neut % (Auto) 59.7 (50-75) % Lymph % (Auto) 31.4 (25-40) % [place] % (Auto) 6.3 (3-14) % Eos % (Auto) 2.2 (2-4) % Baso % (Auto) 0.4 (0-2) % Neut # (Auto) 4600 (6690-8369) /uL Lymph # (Auto) 2400 (6928-5731) /uL [place] # (Auto) 500 (0-900) /uL Eos # (Auto) 200 (0-450) /uL Baso # (Auto) 0 (0-100) /uL Sodium 141 (137-145) mmol/L Potassium 3.6 (3.4-5.1) mmol/L Chloride 103 (98-107) mmol/L Carbon Dioxide 25 (22-32) mmol/L BUN 11 (7-17) mg/dL Creatinine 0.82 (0.52-1.04) mg/dL Estimated GFR > 60 (>60) mL/min BUN/Creatinine Ratio 13.4 (6-22) Glucose 116 H (70-99) mg/dL Calcium 8.9 (8.4-10.2) mg/dL Total Bilirubin 0.3 (0.2-1.3) mg/dL AST 24 (14-36) IU/L ALT 19 (<35) IU/L Alkaline Phosphatase 89 (38-126) U/L Total Protein 7.6 (6.3-8.2) g/dL Albumin 4.2 (3.5-5.0) g/dL Globulin 3.4 (1.7-4.1) g/dL Albumin/Globulin Ratio 1.2 (1.0-2.8) TSH 1.43 (0.47-4.68) uIU/mL Salicylates < 1.0 (<20) mg/dL U Opiates 300ng/mL cut Negative (Negative) Ur Oxycodone Screen Negative (Negative) Urine Methadone Screen Negative (Negative) Acetaminophen < 10 (10-30) ug/mL Ur Barbiturates Screen Negative (Negative) U Tricyclic Antidepress Negative (Negative) Ur Phencyclidine Scrn Negative (Negative) Ur Amphetamines Screen Negative (Negative) U Methamphetamines Scrn Negative (Negative) Ur MDMA Scrn (Ecstasy) Negative (Negative) U Benzodiazepines Scrn Positive H (Negative) Urine Cocaine Screen Negative (Negative) U Marijuana (THC) Screen Positive H (Negative) Urine pH Normal (Normal) Urine Specific [place] Normal (Normal) Ethyl Alcohol 121 H (<10) mg/dL Ur Creatinine Normal (Normal) SARS-CoV-2 (PCR) Negative (Negative) Point of Care Testing Test Results Negative Urine Dip Bedside Urine Glucose Negative Bedside Urine Bilirubin - Negative Bedside Urine Ketone - Negative Urine Specific [place] 1.015 Bedside Urine Occult Blood - Negative Bedside Urine pH 6.0 Bedside Urine Protein - Negative Bedside Urine Urobilinogen - Negative Bedside Urine Nitrite - Negative Bedside Urine Leukocytes - Negative Esterase MDM Narrative Medical decision making narrative: Vital signs, nurse triage note, medication list, previous ER visits, and all imaging studies reviewed. Glucose 116, UDS positive for benzos marijuana. Alcohol level 121. Differential diagnosis depression, anxiety, suicidal attempt, suicidal ideation, polysubstance abuse. Patient agreeable volunteer be admitted to mental health facility at this time. Medically cleared for transfer. Patient is accepted for inpatient mental health admission for suicidal ideation. She will be admitted to [facility] and we are arranging transport Discharge Plan Departure Patient Disposition: Xfer Psychiatric Hosp Clinical Impression: Suicide attempt Depression Qualifiers: Depression Type: major depressive disorder Major depression recurrence: recurrent Active/Remission status: currently active Major depression episode severity: severe Psychotic features: without psychotic features Qualified Code(s): F33.2 - Major depressive disorder, recurrent severe without psychotic features Prescriptions: No Action azithromycin 250 mg tablet See Rx Instructions PO .COMPLEX Qty: 6 0RF Rx Instructions: For 250 mg dose pack: take 500 mg today (day 1), then 250 mg for 4 days (days 2-5) PO albuterol sulfate [Ventolin HFA] 90 mcg/actuation HFA aerosol inhaler 2 puff inhalation Q6H PRN (Reason: shortness of breath or wheezing) Qty: 8.5 0RF mecobalamin (vitamin B12) 500 mcg tablet,chewable PO cholecalciferol (vitamin D3) 125 mcg (5,000 unit) capsule 125 mcg PO .twice per week naltrexone 50 mg tablet 50 mg PO DAILY Qty: 30 2RF atomoxetine 40 mg capsule 40 mg PO QAM Qty: 30 2RF Rx Instructions: take with breakfast escitalopram oxalate 20 mg tablet 20 mg PO DAILY Qty: 90 3RF levonorgestrel-ethinyl estrad 0.15-0.03 mg tablet See Rx Instructions PO .COMPLEX Qty: 84 3RF Rx Instructions: take 1 tablet daily following the order on blister card(s) PO Referrals: Prisca Blank, CENTER MEDICAL DIRECTOR-BC [Primary Care Provider, Family Practice]
--- NOTE | 2024-10-22 19:06 | CM.SWNOTE ---
ED SURVEY RESEARCH PROFESSOR Note SURVEY RESEARCH PROFESSOR calls [facility] to seek dual dx bed for patient, it is reported that they have beds. SURVEY RESEARCH PROFESSOR faxes clinicals for review. Jahaira at [facility] calls to report that patient is accepted by Michael Reynolds DNP at [facility]. It is reported that patient can arrive at or after 2100. RN to RN:[phone] SURVEY RESEARCH PROFESSOR calls [facility] and schedules transport for 1944 for 2139 arrival. Plan: patient to transfer to [facility] via BLS this evening for voluntary dual dx bed. Mariana Clark, SHIRRING MACHINE OPERATOR AUTOMATIC
[2024-10-22 19:27] VITALS: BP 125/80; PULSE 88; RESP 20; O2SAT 96
== END 2024-10-22 20:22 ==
PROVIDERS: Family Medicine; Emergency Provider Emergency Medicine; Family Provider Nurse Practitioner Family; PCP Nurse Practitioner Family
DX: T14.91XA Suicide attempt, initial encounter (principal); F33.2 Major depressive disorder, recurrent severe without psychotic features; F12.90 Cannabis use, unspecified, uncomplicated
CPT/HCPCS: 80053; 80305; 80320; 80329; 81003; 81025; 84443; 85025; 87635; 99284; G0480